=== PATIENT | male | born 1945 | race Caucasian/White ===

== ENCOUNTER 2019-01-19 21:05 | Emergency (ER) | payer OTHER, MEDICARE, MEDICAID ==
[~2019-01-19] VITALS: Ht 162.6 cm; Wt 79.5 kg
[~2019-01-19 21:05] MED LIST: ALPR-624 PO; ASPI-611 PO; ATOR10TA PO; BUPR200T PO; CLOP75TA4 PO; DOCU100C41 PO; GLYB5TAB7 PO; ISOS30TA6 PO; LEVO25TA2 PO; LISI1TAB11 PO; METO100T14 PO; NITR0.4T SL; OMEP20CA11 PO; SILD100T PO; VITA-268 PO
[2019-01-19] MEDS ORDERED: HYDROcodone/acetaminophen 10/325mg tab PO ONE (21:45)
[2019-01-19] MEDS ORDERED: ondansetron/PF 4mg/2ml inj IV ONE (21:45)
[2019-01-19] MEDS ORDERED: morphine 4 MG/ML inj SYRINge IV ONE (21:45)
[2019-01-19] MEDS ORDERED: HYDR-4353 PO (21:55)
--- NOTE | 2019-01-19 22:34 | NUR ---
pt fitted w/ shoulder immobilizer on rt UE.
--- NOTE | 2019-01-19 22:56 | NUR ---
[facility] ON WAY WITH ETA OF 10 MINUTES
[2019-01-19 23:23] VITALS: BP 135/93
== END 2019-01-19 23:28 | disposition home or self-care (01) ==
LOC: ER 21:06
DX: S42.211A Unspecified displaced fracture of surgical neck of right humerus, initial encounter for closed fracture (principal); I25.10 Atherosclerotic heart disease of native coronary artery without angina pectoris; I10 Essential (primary) hypertension; K21.9 Gastro-esophageal reflux disease without esophagitis; E11.9 Type 2 diabetes mellitus without complications; Z98.61 Coronary angioplasty status; Z88.8 Allergy status to other drugs, medicaments and biological substances; Z79.82 Long term (current) use of aspirin; Z79.899 Other long term (current) drug therapy; W19.XXXA Unspecified fall, initial encounter; Y93.89 Activity, other specified; Y92.89 Other specified places as the place of occurrence of the external cause; Y99.8 Other external cause status
CPT/HCPCS: 29105; 73030; 93005; 96374; 96375; 99284; J2270; J2405

== ENCOUNTER 2019-01-21 17:00 | Emergency (ER) | payer MEDICARE, MEDICAID ==
[~2019-01-21] VITALS: Ht 162.6 cm; Wt 77.3 kg
[~2019-01-21 17:00] MED LIST changes: +HYDR-4353 PO; -LISI1TAB11 PO; +LISI1TAB28 PO
[2019-01-21 17:03] VITALS: BP 164/76
[2019-01-21] MEDS ORDERED: HYDROcodone/acetaminophen 5mg/325mg tablet PO ONE (20:30)
[2019-01-31] MEDS ORDERED: IBUP-1984 PO (13:27)
[2019-01-31] MEDS ORDERED: ACET-2615 PO (13:27)
[2019-01-31] MEDS ORDERED: SULF1TAB49 PO (13:27)
== END 2019-01-21 21:39 | disposition home or self-care (01) ==
LOC: ER 17:01
DX: S42.211D Unspecified displaced fracture of surgical neck of right humerus, subsequent encounter for fracture with routine healing (principal); I25.10 Atherosclerotic heart disease of native coronary artery without angina pectoris; I10 Essential (primary) hypertension; K21.9 Gastro-esophageal reflux disease without esophagitis; E11.9 Type 2 diabetes mellitus without complications; F41.9 Anxiety disorder, unspecified; Z98.61 Coronary angioplasty status; Z88.8 Allergy status to other drugs, medicaments and biological substances; Z79.82 Long term (current) use of aspirin; Z79.899 Other long term (current) drug therapy; W19.XXXD Unspecified fall, subsequent encounter
CPT/HCPCS: 99282; 99283

== ENCOUNTER 2019-02-09 13:41 | Outpatient (CLI) | payer MEDICARE, MEDICAID, OTHER ==
[~2019-02-09 13:41] MED LIST changes: +ACET-2615 PO; +IBUP-1984 PO; +LISI1TAB11 PO; -LISI1TAB28 PO; +SULF1TAB49 PO
== END 2019-02-09 14:30 | disposition home or self-care (01) ==
LOC: ORTHO 13:41
PROVIDERS: ATTEND Orthopaedic Surgery
DX: S42.291A Other displaced fracture of upper end of right humerus, initial encounter for closed fracture (principal); M85.88 Other specified disorders of bone density and structure, other site; I10 Essential (primary) hypertension; E11.9 Type 2 diabetes mellitus without complications; X58.XXXA Exposure to other specified factors, initial encounter; Y93.89 Activity, other specified; Y92.89 Other specified places as the place of occurrence of the external cause; Y99.8 Other external cause status
CPT/HCPCS: 73030; G0463

== ENCOUNTER 2019-02-20 21:02 | Inpatient (IN) | payer MEDICARE, MEDICAID, OTHER ==
[~2019-02-20] VITALS: Ht 162.6 cm; Wt 79.5 kg
[~2019-02-20 21:02] MED LIST changes: -LISI1TAB11 PO; +LISI1TAB28 PO; -SULF1TAB49 PO
[2019-02-20] MEDS ORDERED: normal saline 1000ML IV soln IVB ONE (22:40)
[2019-02-20 23:11] LABS: BASOPHILS # (AUTO) 0.1 X10'3 (0-0.2); BASOPHILS % (AUTO) 0.7 % (0-1); EOSINOPHILS % (AUTO) 0.5 % (0-6); HEMATOCRIT 44.2 % (42.0-52.0); HEMOGLOBIN 14.5 g/dl (14.0-17.9); LYMPHOCYTES # (AUTO) 1.5 X10'3 (1.1-4.8); LYMPHOCYTES % (AUTO) 20.6 % (21-51); MEAN CORPUSCULAR HEMOGLOBIN 27.9 PG (27.0-31.0); MEAN CORPUSCULAR HGB CONC 32.8 g/dL (33.0-36.5); MEAN PLATELET VOLUME 8.9 FL (7.4-10.4); MONOCYTES # (AUTO) 0.6 X10'3 (0-0.9); MONOCYTES % (AUTO) 7.9 % (2-12); NEUTROPHILS # (AUTO) 5.2 X10'3 (1.8-7.7); NEUTROPHILS % (AUTO) 70.3 % (42-75); PLATELET COUNT 257 X10'3 (140-440); RED CELL DISTRIBUTION WIDTH 16.2 % (11.5-14.5); WHITE BLOOD COUNT 7.4 X10'3 (4.5-11.0)
[2019-02-20 23:26] LABS: CLARITY,URINE CLEAR (Clear); COLOR,URINE YELLOW (Yellow); GLUCOSE, URINE NEGATIVE (Neg); KETONES,URINE TRACE mg/dl (Neg); LEUKOCYTE ESTERASE ,URINE NEGATIVE (Neg); NITRITES, URINE NEGATIVE (Neg); OCCULT BLOOD,URINE TRACE-LYSED (Neg); PH,URINE 5.5 (4.8-8.0); PROTEIN,URINE 30 mg/dl (Neg); UROBILINOGEN,URINE 0.2 E.U/dL (0.2-1.0)
[2019-02-20 23:27] LABS: PARTIAL THROMBOPLASTIN TIME 25 SECONDS (22-32)
[2019-02-20 23:30] LABS: UA COLLECTION TYPE STRAIGHT CATH
[2019-02-20 23:31] LABS: BACTERIA,URINE FEW /HPF (Neg); RBC,URINE 0-2 /HPF (0-2); SQUAMOUS EPITHELIAL CELL,UR FEW /LPF (FEW); WBC,URINE 0-4 /HPF (0-4)
[2019-02-20] MEDS ORDERED: aspirin 81mg tab.chew PO ONE (23:45)
[2019-02-21 00:16] LABS: ALANINE AMINOTRANSFERASE 13 U/L (12-78); ALBUMIN 2.8 G/DL (3.4-5.0); ALBUMIN/GLOBULIN RATIO 0.6 (1.1-1.5); ALKALINE PHOSPHATASE 117 IU/L (46-116); ANION GAP 16 (8-16); ASPARTATE AMINO TRANSFERASE 8 U/L (10-37); BILIRUBIN,TOTAL 0.4 MG/DL (0.1-1.0); BLOOD UREA NITROGEN 67 MG/DL (7-18); BUN/CREATININE RATIO 26.2 (5.4-32.0); CALCIUM 8.8 MG/DL (8.5-10.1); CHLORIDE 102 MMOL/L (99-107); CREATININE 2.56 MG/DL (0.60-1.10); GLUCOSE 83 MG/DL (70-104); POTASSIUM 4.1 MMOL/L (3.5-5.1); SODIUM 136 MMOL/L (135-145); TOTAL CARBON DIOXIDE 18.1 MMOL/L (24-32); TOTAL PROTEIN 7.6 G/DL (6.4-8.2); eGFR 25 ML/MIN
[2019-02-21] MEDS ORDERED: NO HOME MEDS (01:17)
--- NOTE | 2019-02-21 01:47 | NUR ---
PATIENT RESTING WITH SON AT BEDSIDE. NO VISIBLE ACUTE DISTRESS
[2019-02-21] MEDS ORDERED: HYDROcodone/acetaminophen 10/325mg tab PO PRN (03:05)
[2019-02-21] MEDS ORDERED: magnesium hydroxide 30ml (MOM) UD suspension PO PRN (03:05)
[2019-02-21] MEDS ORDERED: acetaminophen 325mg tablet PO PRN ×2 (03:05)
[2019-02-21] MEDS ORDERED: HYDROcodone/acetaminophen 5mg/325mg tablet PO PRN (03:05)
[2019-02-21] MEDS ORDERED: mag hydrox/Alum hydrox/simeth 30ml oral suspension PO PRN (03:05)
[2019-02-21] MEDS: normal saline 1000ml 1,000 ML IV SCH ×3 (03:05→15:08)
[2019-02-21] MEDS ORDERED: ondansetron/PF 4mg/2ml inj IV PRN (03:05)
--- NOTE | 2019-02-21 05:15 | NUR ---
Received report from KATY Barnard. Awaiting patient arrival to the unit.
--- NOTE | 2019-02-21 05:25 | NUR ---
Patient arrived to the unit via gurney. Placed in room 344A. Transferred patient from [place] to bed with assist, alert and oriented, in no apparent distress. TV, Phone, call light and items of frequent use within reach. Refused to remove his current depends. Son verbalized he will bring in more later. Will continue to monitor.
[2019-02-21 05:30] VITALS: BP 129/57
--- NOTE | 2019-02-21 06:11 | NUR ---
Problems reprioritized. Patient report given, questions answered & plan of care reviewed with KATY Rodriguez.
[2019-02-21 07:00] VITALS: BP 118/69
[2019-02-21] MEDS: enoxaparin 30mg/0.3ml syringe SUBCUT SCH (08:35)
[2019-02-21 11:34] VITALS: BP 121/69
--- NOTE | 2019-02-21 15:41 | NUR ---
Malnutrition consult: Pt admit w/ increasing weakness, acute renal failure r/t dehydration, and hx declining PO at home per MD note. Pt unable to wake during RD visit but son at bedside. RD d/w son who reports UBW ~160#; currently 176# though no scaled wt yet this admit and no prior wt hx. Son reports lower PO at home r/t weakness w/ no significant hx constipation or GI issues. Pt placed on pureed/NTL per INSURANCE PROCESSING CLERK recs; son requests ensure pudding vanilla TIDWM; dietary notified. Noted to have R shoulder in sling following prior fx from fall which could impact PO as well. At this time pt has mild weakness, no edema/wounds, PO 25% first meal, no substantial wt loss hx, and mild muscle/fat wasting. Given above criteria pt qualifies for non-severe malnutrition at this time; MD notified. Will continue to monitor. Rec: 1. carb controlled/pureed/NTL diet per INSURANCE PROCESSING CLERK/MD 2. vanilla ensure pudding TIDWM 3. routine bowel care 4. weekly wts Addendum: 02/21/19 at [address] Amended: Links added.
--- NOTE | 2019-02-21 18:08 | NUR ---
Received report from KATY Rodriguez. Patient is awake and alert on room air, in no apparent distress. Sitting up having dinner. Call light and items of frequent use within reach. Will continue to monitor.
--- NOTE | 2019-02-21 18:09 | NUR ---
Problems reprioritized. Patient report given, questions answered & plan of care reviewed with Annie BURNS.
[2019-02-21 20:00] VITALS: BP 97/52
[2019-02-22] VITALS: BP 105/55
[2019-02-22 04:49] LABS: BASOPHILS % (AUTO) 0.8 % (0-1); EOSINOPHILS # (AUTO) 0.1 X10'3 (0-0.9); EOSINOPHILS % (AUTO) 1.6 % (0-6); HEMATOCRIT 35.3 % (42.0-52.0); HEMOGLOBIN 11.6 g/dl (14.0-17.9); LYMPHOCYTES # (AUTO) 1.2 X10'3 (1.1-4.8); LYMPHOCYTES % (AUTO) 24.3 % (21-51); MEAN CORPUSCULAR HEMOGLOBIN 27.9 PG (27.0-31.0); MEAN CORPUSCULAR HGB CONC 32.8 g/dL (33.0-36.5); MEAN PLATELET VOLUME 8.7 FL (7.4-10.4); MONOCYTES # (AUTO) 0.5 X10'3 (0-0.9); MONOCYTES % (AUTO) 9.7 % (2-12); NEUTROPHILS # (AUTO) 3.2 X10'3 (1.8-7.7); NEUTROPHILS % (AUTO) 63.6 % (42-75); PLATELET COUNT 178 X10'3 (140-440); RED BLOOD COUNT 4.16 X10'6 (4.70-6.10); RED CELL DISTRIBUTION WIDTH 16.3 % (11.5-14.5)
[2019-02-22 04:57] LABS: ALBUMIN 2.4 G/DL (3.4-5.0); ANION GAP 10 (8-16); BLOOD UREA NITROGEN 51 MG/DL (7-18); BUN/CREATININE RATIO 33.1 (5.4-32.0); CALCIUM 8.8 MG/DL (8.5-10.1); CHLORIDE 109 MMOL/L (99-107); CREATININE 1.54 MG/DL (0.60-1.10); GLUCOSE 71 MG/DL (70-104); POTASSIUM 4.5 MMOL/L (3.5-5.1); SODIUM 140 MMOL/L (135-145); TOTAL CARBON DIOXIDE 20.7 MMOL/L (24-32); eGFR 45 ML/MIN
--- NOTE | 2019-02-22 06:40 | NUR ---
Problems reprioritized. Patient report given, questions answered & plan of care reviewed with KATY Rubio.
[2019-02-22 07:00] VITALS: BP 112/61
[2019-02-22] MEDS: enoxaparin 30mg/0.3ml syringe SUBCUT SCH (07:02)
[2019-02-22] MEDS: normal saline 1000ml 1,000 ML IV SCH ×2 (10:32→19:55)
[2019-02-22 12:00] VITALS: BP 110/52
--- NOTE | 2019-02-22 18:07 | NUR ---
Received report from KATY Rubio. Patient is awake and alert on room air, in no apparent distress. Call light and items of frequent use within reach. Will continue to monitor.
[2019-02-22 20:00] VITALS: BP 137/67
[2019-02-23] VITALS: BP 127/68
[2019-02-23 04:55] LABS: BASOPHILS % (AUTO) 0.7 % (0-1); EOSINOPHILS # (AUTO) 0.1 X10'3 (0-0.9); EOSINOPHILS % (AUTO) 1.3 % (0-6); HEMATOCRIT 35.3 % (42.0-52.0); HEMOGLOBIN 11.6 g/dl (14.0-17.9); LYMPHOCYTES # (AUTO) 1.1 X10'3 (1.1-4.8); LYMPHOCYTES % (AUTO) 21.8 % (21-51); MEAN CORPUSCULAR HEMOGLOBIN 28.1 PG (27.0-31.0); MEAN CORPUSCULAR HGB CONC 32.9 g/dL (33.0-36.5); MEAN CORPUSCULAR VOLUME 85.2 FL (78-98); MEAN PLATELET VOLUME 8.8 FL (7.4-10.4); MONOCYTES # (AUTO) 0.5 X10'3 (0-0.9); MONOCYTES % (AUTO) 9.8 % (2-12); NEUTROPHILS # (AUTO) 3.4 X10'3 (1.8-7.7); NEUTROPHILS % (AUTO) 66.4 % (42-75); PLATELET COUNT 167 X10'3 (140-440); RED BLOOD COUNT 4.14 X10'6 (4.70-6.10); RED CELL DISTRIBUTION WIDTH 16.2 % (11.5-14.5); WHITE BLOOD COUNT 5.1 X10'3 (4.5-11.0)
[2019-02-23 04:57] LABS: ALBUMIN 2.3 G/DL (3.4-5.0); ANION GAP 10 (8-16); BLOOD UREA NITROGEN 29 MG/DL (7-18); BUN/CREATININE RATIO 28.4 (5.4-32.0); CALCIUM 8.5 MG/DL (8.5-10.1); CHLORIDE 108 MMOL/L (99-107); CREATININE 1.02 MG/DL (0.60-1.10); GLUCOSE 58 MG/DL (70-104); POTASSIUM 4.1 MMOL/L (3.5-5.1); SODIUM 139 MMOL/L (135-145); TOTAL CARBON DIOXIDE 20.6 MMOL/L (24-32); eGFR 72 ML/MIN
[2019-02-23] MEDS: normal saline 1000ml 1,000 ML IV SCH ×2 (05:34→15:15)
--- NOTE | 2019-02-23 06:13 | NUR ---
Reported off to KATY Rubio. Patient resting comfortably.
[2019-02-23] MEDS: enoxaparin 30mg/0.3ml syringe SUBCUT SCH (07:42)
[2019-02-23 08:00] VITALS: BP 117/57
--- NOTE | 2019-02-23 10:54 | NUR ---
Reassessment: CLIF improving per MD notes. Pt s/p BSS 02/[address] recs to continue pureed foods with nectar thick liquids. Pt appetite seems to be improving with documented 75% PO intake, previously 25%. LBM 02/20, recommend power pudding with lunch today to help with BM, d/w dietary. Will continue to follow. Rec: 1. carb controlled/pureed/NTL diet per INDUSTRIAL TECHNOLOGY EDUCATION TEACHER/MD 2. vanilla ensure pudding TIDWM 3. routine bowel care 4. weekly wts Addendum: 02/23/19 at [address] Amended: Links added.
[2019-02-23 11:00] VITALS: BP 104/56
[2019-02-23 18:00] VITALS: BP 119/60
--- NOTE | 2019-02-23 18:00 | NUR ---
Patient in room [facility]. I have received report from KATY Rubio and had the opportunity to ask questions and assume patient care.
[2019-02-23] MEDS: sulfacetamide sodium 10% ophthalmic drops 5ML BOTTLE LEFTEYE SCH ×3 (19:08→23:05)
[2019-02-23] MEDS ORDERED: sulfacetamide 10% ophthalmic oint 3.5gm LEFTEYE SCH (20:00)
[2019-02-24] VITALS: BP 132/59
[2019-02-24] MEDS: normal saline 1000ml 1,000 ML IV SCH ×2 (00:54→11:01)
[2019-02-24] MEDS: sulfacetamide sodium 10% ophthalmic drops 5ML BOTTLE LEFTEYE SCH ×4 (00:54→13:04)
[2019-02-24 04:34] LABS: BASOPHILS % (AUTO) 0.7 % (0-1); EOSINOPHILS # (AUTO) 0.1 X10'3 (0-0.9); EOSINOPHILS % (AUTO) 1.6 % (0-6); HEMATOCRIT 37.5 % (42.0-52.0); LYMPHOCYTES # (AUTO) 1.2 X10'3 (1.1-4.8); LYMPHOCYTES % (AUTO) 19.4 % (21-51); MEAN CORPUSCULAR HEMOGLOBIN 27.5 PG (27.0-31.0); MEAN CORPUSCULAR VOLUME 86.1 FL (78-98); MONOCYTES # (AUTO) 0.7 X10'3 (0-0.9); MONOCYTES % (AUTO) 11.3 % (2-12); PLATELET COUNT 159 X10'3 (140-440); RED BLOOD COUNT 4.35 X10'6 (4.70-6.10); RED CELL DISTRIBUTION WIDTH 16.5 % (11.5-14.5)
[2019-02-24 04:37] LABS: ALBUMIN 2.3 G/DL (3.4-5.0); ANION GAP 11 (8-16); BLOOD UREA NITROGEN 17 MG/DL (7-18); BUN/CREATININE RATIO 16.7 (5.4-32.0); CHLORIDE 106 MMOL/L (99-107); CREATININE 1.02 MG/DL (0.60-1.10); GLUCOSE 53 MG/DL (70-104); POTASSIUM 3.9 MMOL/L (3.5-5.1); SODIUM 138 MMOL/L (135-145); TOTAL CARBON DIOXIDE 20.6 MMOL/L (24-32); eGFR 72 ML/MIN
[2019-02-24] MEDS ORDERED: glucagon, human recombinant 1mg kit SUBCUT PRN (05:50)
[2019-02-24] MEDS ORDERED: dextrose ORAL solution 15 GM/59 ML bottle PO PRN ×2 (05:50)
[2019-02-24] MEDS ORDERED: dextrose 50%-water 50ml dispensing syringe IV PRN ×2 (05:50)
--- NOTE | 2019-02-24 06:07 | NUR ---
Patient in room [facility]. I have received report from KATY Rubio and had the opportunity to ask questions and assume patient care. Addendum: 02/24/19 at 0608 by Umer Zabala RN Problems reprioritized. Patient report given, questions answered & plan of care reviewed with KATY Rubio.
[2019-02-24 07:00] VITALS: BP 127/60
[2019-02-24] MEDS: enoxaparin 30mg/0.3ml syringe SUBCUT SCH (08:00)
[2019-02-24 11:16] VITALS: BP 131/60
--- NOTE | 2019-02-24 14:00 | NUR ---
report called to Collette BURNS at [facility].
== END 2019-02-24 14:15 | DRG 683 ==
LOC: ER 21:02 → SUR 3N 02-21 05:28
PROVIDERS: ADMIT Hospitalist; ATTEND Family Medicine
DX: N17.9 Acute kidney failure, unspecified (principal); S42.91XA Fracture of right shoulder girdle, part unspecified, initial encounter for closed fracture; E44.0 Moderate protein-calorie malnutrition; E11.22 Type 2 diabetes mellitus with diabetic chronic kidney disease; E86.0 Dehydration; I25.10 Atherosclerotic heart disease of native coronary artery without angina pectoris; K21.9 Gastro-esophageal reflux disease without esophagitis; N18.9 Chronic kidney disease, unspecified; F41.9 Anxiety disorder, unspecified; W18.39XA Other fall on same level, initial encounter; Z88.8 Allergy status to other drugs, medicaments and biological substances; Y93.89 Activity, other specified; Y92.89 Other specified places as the place of occurrence of the external cause; Y99.8 Other external cause status; R29.6 Repeated falls; Z68.30 Body mass index [BMI] 30.0-30.9, adult
CPT/HCPCS: 36415; 71045; 76775; 80048; 80053; 81001; 82948; 83036; 83880; 84484; 85025; 85610; 85730; 87081; 92508; 92616; 93005; 96360; 97110; 97116; 97530; 99285; G0378; J1650; J7030

== ENCOUNTER 2019-03-10 11:47 | Outpatient (CLI) | payer MEDICARE, MEDICAID ==
[~2019-03-10 11:47] MED LIST changes: -ACET-2615 PO; -ALPR-624 PO; -ASPI-611 PO; -ATOR10TA PO; -BUPR200T PO; -CLOP75TA4 PO; -DOCU100C41 PO; -GLYB5TAB7 PO; -HYDR-4353 PO; -IBUP-1984 PO; -ISOS30TA6 PO; -LEVO25TA2 PO; -LISI1TAB28 PO; -METO100T14 PO; -NITR0.4T SL; +NO HOME MEDS; -OMEP20CA11 PO; -SILD100T PO; -VITA-268 PO
== END 2019-03-10 12:45 | disposition home or self-care (01) ==
LOC: ORTHO 11:47
PROVIDERS: ATTEND Orthopaedic Surgery
DX: S42.291D Other displaced fracture of upper end of right humerus, subsequent encounter for fracture with routine healing (principal); M75.01 Adhesive capsulitis of right shoulder; I10 Essential (primary) hypertension; E11.9 Type 2 diabetes mellitus without complications; X58.XXXD Exposure to other specified factors, subsequent encounter
CPT/HCPCS: 73030; G0463

== ENCOUNTER 2020-03-22 16:28 | Emergency (ER) | payer OTHER, MEDICARE, MEDICAID ==
[~2020-03-22] VITALS: Ht 162.6 cm; Wt 73.0 kg
[2020-03-22 18:52] LABS: BASOPHILS # (AUTO) 0.1 X10'3 (0-0.2); BASOPHILS % (AUTO) 0.8 % (0-1); EOSINOPHILS % (AUTO) 0.2 % (0-6); HEMATOCRIT 43.7 % (42.0-52.0); HEMOGLOBIN 14.3 g/dl (14.0-17.9); LYMPHOCYTES % (AUTO) 14.3 % (21-51); MEAN CORPUSCULAR HEMOGLOBIN 29.2 PG (27.0-31.0); MEAN CORPUSCULAR HGB CONC 32.8 g/dL (33.0-36.5); MEAN PLATELET VOLUME 8.9 FL (7.4-10.4); MONOCYTES # (AUTO) 0.5 X10'3 (0-0.9); MONOCYTES % (AUTO) 6.7 % (2-12); NEUTROPHILS # (AUTO) 5.4 X10'3 (1.8-7.7); PLATELET COUNT 190 X10'3 (140-440); RED BLOOD COUNT 4.91 X10'6 (4.70-6.10); WHITE BLOOD COUNT 6.9 X10'3 (4.5-11.0)
[2020-03-22 18:57] LABS: CLARITY,URINE CLEAR (Clear); COLOR,URINE AMBER (Yellow); GLUCOSE, URINE NEGATIVE (Neg); KETONES,URINE 15 mg/dl (Neg); LEUKOCYTE ESTERASE ,URINE NEGATIVE (Neg); NITRITES, URINE NEGATIVE (Neg); OCCULT BLOOD,URINE MODERATE (Neg); PH,URINE 5.5 (4.8-8.0); PROTEIN,URINE TRACE mg/dl (Neg)
--- NOTE | 2020-03-22 18:59 | NUR ---
Pt's son, Edd Clinton, can be reached at [phone]. Pt gives permission for Edd to have information.
[2020-03-22 19:04] LABS: UA COLLECTION TYPE FOLEY CATH
--- NOTE | 2020-03-22 19:10 | NUR ---
UPDATED ED PROVIDER MARK ELIAS ABOUT UA RESULTS OF MEDIUM OCCULT BLOOD RESULTS.
[2020-03-22 19:11] LABS: BACTERIA,URINE 3+ /HPF (Neg); SQUAMOUS EPITHELIAL CELL,UR FEW /LPF (FEW)
[2020-03-22 19:13] LABS: ALANINE AMINOTRANSFERASE 11 U/L (12-78); ALBUMIN 3.4 G/DL (3.4-5.0); ALBUMIN/GLOBULIN RATIO 0.7 (1.1-1.5); ALKALINE PHOSPHATASE 76 IU/L (46-116); ANION GAP 14 (8-16); ASPARTATE AMINO TRANSFERASE 14 U/L (10-37); BILIRUBIN,TOTAL 0.6 MG/DL (0.1-1.0); BLOOD UREA NITROGEN 29 MG/DL (7-18); BUN/CREATININE RATIO 14.8 (5.4-32.0); CALCIUM 9.4 MG/DL (8.5-10.1); CHLORIDE 100 MMOL/L (99-107); CREATININE 1.96 MG/DL (0.60-1.10); GLUCOSE 97 MG/DL (70-104); MAGNESIUM 1.6 MG/DL (1.5-2.4); POTASSIUM 4.3 MMOL/L (3.5-5.1); SODIUM 137 MMOL/L (135-145); TOTAL CARBON DIOXIDE 23.4 MMOL/L (24-32); eGFR 34 ML/MIN
--- NOTE | 2020-03-22 19:43 | NUR ---
BREAKING PRIMARY RN- WILL CONT TO MONITOR.
[2020-03-22] MEDS ORDERED: normal saline 1000ML IV soln IVB ONE (19:50)
--- NOTE | 2020-03-22 20:33 | NUR ---
ATTEMPTED TO CALL PT'S SON-KATHY- REGARDING PICKING UP PT. LEFT MESSAGE. WILL TRY AGAIN SOON
--- NOTE | 2020-03-22 20:40 | NUR ---
SPOKE TO PT'S SON-HE CANNOT DRIVE AND WON'T BE ABLE TO [facility] PT, SAYS HE NORMALLY COMES HOME VIA CAB. WILL CALL FOR CAB RIDE
[2020-03-22 21:14] VITALS: BP 133/75
== END 2020-03-22 21:16 | disposition home or self-care (01) ==
LOC: ER 16:30
DX: R53.1 Weakness (principal); R11.0 Nausea; R62.50 Unspecified lack of expected normal physiological development in childhood; I25.10 Atherosclerotic heart disease of native coronary artery without angina pectoris; I10 Essential (primary) hypertension; K21.9 Gastro-esophageal reflux disease without esophagitis; E11.9 Type 2 diabetes mellitus without complications; F41.9 Anxiety disorder, unspecified; Z98.61 Coronary angioplasty status; Z72.89 Other problems related to lifestyle; Z88.8 Allergy status to other drugs, medicaments and biological substances
CPT/HCPCS: 36415; 80053; 81001; 83735; 84484; 85025; 87088; 96360; 99284; J7030